=== PATIENT | male | born 1985 ===

== ENCOUNTER 2017-06-18 21:11 | Emergency (ER) | payer SELFPAY ==
[2017-06-18 21:56] VITALS: BP 124/71; PULSE 90; RESP 18; TEMP 99.2; O2SAT 99
--- NOTE | 2017-06-18 22:16 | ED PDOC ---
HPI: Chest Pain Time Seen by Provider: 06/18/17 21:49 Chief Complaint (Nursing): Chest Pain Chief Complaint (Provider): chest pain History Per: Patient History/Exam Limitations: no limitations Onset/Duration Of Symptoms: Hrs Current Symptoms Are (Timing): Still Present Exacerbating Factors: Turning, Movement Additional History Per: Patient Additional Complaint(s): 32 y/o male no past medical history presents with right-sided chest pain x 8 hours. Patient states pain worse with movement of upper torso, neck, and with coughing. Denies fever, nausea/vomiting, shortness of breath, palpitations, leg pain/swelling. Past Medical History Reviewed: Historical Data, Nursing Documentation, Vital Signs Vital Signs: Last Vital Signs Temp 99.2 F 06/18/17 21:53 Pulse 90 06/18/17 21:53 Resp 18 06/18/17 21:53 BP 124/71 06/18/17 21:53 Pulse Ox 99 06/18/17 22:16 - Medical History PMH: No Chronic Diseases - Surgical History Surgical History: No Surg Hx - Family History Family History: States: Unknown Family Hx - Living Arrangements Living Arrangements: With Family - Social History Current smoker - smoking cessation education provided: Yes Alcohol: None Drugs: Denies - Home Medications Home Medications: Ambulatory Orders Medication Instructions Recorded Naproxen [Naprosyn] 500 mg PO Q12 PRN #20 tablet 06/18/17 - Allergies Allergies/Adverse Reactions: Allergies Allergy/AdvReac Type Severity Reaction Status Date / Time No Known Allergies Allergy Verified 06/18/17 21:53 Review of Systems ROS Statement: Except As Marked, All Systems Reviewed And Found Negative Cardiovascular: Positive for: Chest Pain Physical Exam - Reviewed Nursing Documentation Reviewed: Yes Vital Signs Reviewed: Yes - Physical Exam Appears: Positive for: Well, Non-toxic, No Acute Distress Head Exam: Positive for: ATRAUMATIC, NORMAL INSPECTION, NORMOCEPHALIC Skin: Positive for: Normal Color Eye Exam: Positive for: Normal appearance ENT: Positive for: Normal ENT Inspection Cardiovascular/Chest: Positive for: Regular Rate, Rhythm. Negative for: Chest Non Tender (tender to palpate right anterior chest wall) Respiratory: Positive for: Normal Breath Sounds Gastrointestinal/Abdominal: Positive for: Normal Exam Back: Positive for: Normal Inspection Extremity: Positive for: Normal ROM Neurologic/Psych: Positive for: Alert - Laboratory Results Result Diagrams: 06/18/17 22:23 06/18/17 22:23 - ECG ECG: Positive for: Viewed By Me (reviewed by ED attending) ECG Rhythm: Positive for: Sinus Rhythm O2 Sat by Pulse Oximetry: 99 - Progress ED Course And Treament: labs, ekg, chest xray, IV toradol On re-eval, patient states he is feeling better. Patient educated on findings, discharged with rx Naproxen. Advised follow up PMD 2-3 days. Return to ED for worsening/concerning symptoms. Disposition - Clinical Impression Clinical Impression: Atypical chest pain - Patient ED Disposition Is Patient to be Admitted: No Counseled Patient/Family Regarding: Studies Performed, Diagnosis, Need For Followup, Rx Given - Disposition Referrals: [facility] [Outside] Disposition: Routine/Home Disposition Time: 23:59 Condition: IMPROVED Prescriptions: Naproxen [Naprosyn] 500 mg PO Q12 PRN #20 tablet PRN Reason: Pain, Moderate (4-7) Instructions: Noncardiac Chest Pain (ED)
[2017-06-18 22:25] LABS: BASO # 0.1 K/uL (0.0-0.2); BASO % 1.6 % (0.0-2.0); EOS # 0.1 K/uL (0.0-0.7); EOS % 1.1 % (0.0-4.0); HEMATOCRIT 41.7 % (35.0-51.0); LYMPH # 3.2 K/uL (1.0-4.3); LYMPH % 45.6 % (20.0-40.0); MEAN CORPUSCULAR HEMOGLOBIN 29.6 pg (27.0-31.0); MEAN CORPUSCULAR HGB CONC 34.4 g/dL (33.0-37.0); MEAN PLATELET VOLUME 8.9 fl (7.2-11.7); MONO # 0.4 K/uL (0.0-0.8); MONO % 5.2 % (0.0-10.0); NEUT # 3.2 K/uL (1.8-7.0); NEUT % 46.5 % (50.0-75.0); NRBC % 0.1 % (0.0-0.0); RED CELL DISTRIBUTION WIDTH 12.5 % (11.5-14.5); WHITE BLOOD COUNT 6.9 K/uL (4.8-10.8)
[2017-06-18 22:35] LABS: ALB/GLOB RATIO 1.3 (1.0-2.1); ALKALINE PHOSPHATASE 85 U/L (38-126); ALT/SGPT 22 U/L (21-72); AST/SGOT 25 U/L (17-59); BILIRUBIN,TOTAL 0.5 mg/dl (0.2-1.3); BLOOD UREA NITROGEN 13 mg/dl (9-20); CALCIUM 9.3 mg/dL (8.4-10.2); CARBON DIOXIDE 24 mmol/L (22-30); CHLORIDE 107 mmol/L (98-107); GFR AFRICAN-AMERICAN > 60; GLUCOSE,RANDOM 105 mg/dL (75-110); POTASSIUM 4.3 MMOL/L (3.6-5.0); SODIUM 142 mmol/l (132-148); TOTAL PROTEIN 7.3 G/DL (6.3-8.2)
--- NOTE | 2017-06-20 09:36 | CARD ---
APPROVED REPORT EKG Measurement Heart [id number] <Conclusion> Normal sinus rhythm Possible Inferior infarct, age undetermined Abnormal ECG
== END 2017-06-19 00:10 | disposition home or self-care (01) ==
LOC: H.ER 21:11
DX: R07.89 Other chest pain (principal)
CPT/HCPCS: 71020; 80053; 84484; 85025; 93005; 99284; J1885